=== PATIENT | male | born 1955 | race Caucasian/White ===

== ENCOUNTER 2023-10-25 07:06 | Day surgery (SDC) | payer MEDICARE ==
[2023-10-25] MEDS: LACTATED RINGERS 1,000 ML IV ONE (07:15)
[2023-10-25] MEDS: KETOROLAC 0.45% OPHTH DROPS ONE (07:20)
[2023-10-25] MEDS: PROPARACAINE 0.5% OPHTH DROPS 15 ML ONE (07:20)
[2023-10-25] MEDS: CYCLOPENTOLATE 1% OPHTH DROPS 2 ML ONE (07:20)
[2023-10-25 07:29] VITALS: O2SAT 97
[2023-10-25] MEDS: PHENYLEPHRINE 2.5% OPHTH 2 ML DROPS ONE (07:38)
--- NOTE | 2023-10-25 08:04 | ANESTHESIA ---
Pre-Anesthesia VS, & Labs - Diagnosis NUCLEAR CATARACT - Procedure CATARACT EXTRACTION WITH PROBABLE IOL IMPLANT Vital Signs: Temp Pulse Resp BP Pulse Ox O2 Flow Rate 36.5 C 80 11 L 132/91 H 97 10/25/23 07:15 10/25/23 07:15 10/25/23 07:15 10/25/23 07:15 10/25/23 07:15 Height: 6 ft 2 in Weight (kg): 123.2 kg Body Mass Index: 34.8 BMI Classification: Obese - NPO >8 hours Home Medications and Allergies Home Medications: Ambulatory Orders Inclisiran Sodium [Leqvio] See Rx Instructions .ROUTE .COMPLEX 10/24/23 Losartan [Cozaar] 50 mg PO DAILY 10/24/23 Inclisiran Sodium [Leqvio] See Rx Instructions .ROUTE .COMPLEX 10/24/23 Losartan [Cozaar] 50 mg PO DAILY 10/24/23 Allergies/Adverse Reactions: Allergies Allergy/AdvReac Type Severity Reaction Status Date / Time No Known Drug Allergies Allergy Verified 10/24/23 11:20 Anes History & Medical History - Anesthetic History Anesthesia Complications: reports: No previous complications Family history of Anesthesia Complications: Denies Family history of Malignant Hyperthermia: Denies - Medical History Cardiovascular: reports: Hypertension, High cholesterol, Coronary artery disease, [place] Pulmonary: reports: None Gastrointestinal: reports: None Urinary: reports: Other Neuro: reports: None Musculoskeletal: reports: None Endocrine/Autoimmune: reports: None Blood Disorders: reports: None Skin: reports: None Smoking Status: Current every day smoker (QUIT TOBACCO PRODUCTS 12 YEARS AGO; CURRENT VAPE THC DAILY) Psychosocial: reports: Cannabis (VAPES THC) History of Cancer?: No - Surgical History General: reports: Colonoscopy Cardiothoracic: reports: Coronary stent, Cardiac catheterization, Angioplasty Urologic: reports: Prostatic surgery Results - EKG Results EKG Comparison: Reviewed EKG, Normal EKG Exam General: Alert, Oriented x3, Cooperative, No acute distress Dental: WNL Mouth Openin Fingerbreadth Neck Mobility: Normal Mallampati classification: II Thyromental Distance: 4-6 cm Mental/Cognitive Status: Alert/Oriented X3, Normal for patient Cognitive Status: Within normal limits Plan Anesthesia Type: MAC Consent for Procedure(s) Verified and Reviewed: Yes Code Status: Attempt Resuscitation ASA classification: 3-Severe systemic disease Is this case an emergency?: No
[2023-10-25] MEDS ORDERED: MIDAZOLAM 2 MG/2 ML VIAL ONE ×2 (08:20→08:58)
[2023-10-25] MEDS ORDERED: fentaNYL 100 MCG/2 ML VIAL ONE (08:21)
[2023-10-25] MEDS ORDERED: BRIMONIDINE 0.2% OPHTH DROPS 5 ML ONE (08:22)
[2023-10-25] MEDS ORDERED: BSS/LIDOCAINE/EPINEPHRINE 1 ML VIAL ONE (08:22)
[2023-10-25] MEDS ORDERED: EPINEPHrine 1 MG/ML AMP ONE ×2 (08:22→08:36)
[2023-10-25] MEDS ORDERED: TRIAMCIN/MOXIFLOX OPHTHALMIC 0.6 ML VIAL IO ONE (08:22)
[2023-10-25] MEDS ORDERED: TIMOLOL 0.5% OPHTH DROPS ONE (08:22)
[2023-10-25] MEDS: PROPARACAINE 0.5% OPHTH DROPS 15 ML EACHEYE ONE (09:02)
[2023-10-25] MEDS: VANCOMYCIN OPHTH (TOPICAL) 10 MG/ML SYRINGE TOP ONE (09:02)
[2023-10-25] MEDS: TIMOLOL 0.5% OPHTH DROPS OPTH ONE (09:02)
[2023-10-25] MEDS: TRIAMCIN/MOXIFLOX OPHTHALMIC 0.6 ML VIAL IO ONE (09:02)
[2023-10-25] MEDS: BSS/LIDOCAINE/EPINEPHRINE 1 ML SYRINGE IO ONE (09:02)
[2023-10-25] MEDS: EPINEPHrine 1 MG/ML AMP IR ONE (09:02)
[2023-10-25] MEDS: BRIMONIDINE 0.2% OPHTH DROPS 5 ML OPTH ONE (09:02)
[2023-10-25] MEDS: LACTATED RINGERS 600 ML IV ONE (09:15)
--- NOTE | 2023-10-25 09:21 | OPERATIVE REPORT ---
Operative Report - Other Other Information/Narrative: Date of Surgery: 10/25/23 Preop Dx: Visually significant cataract left eye. This was the first cataract surgery. Postop Dx: Same Procedure: Phacoemulsification with posterior chamber intraocular lens implant left eye Surgeon: Dr. Roe Tapia Anesthesia: Monitored anesthesia care Complications: None Operative Indications: This is a 67-year-old M with progressive vision loss in the left eye due to 3-4+ nuclear sclerotic cataract. Best corrected visual acuity was 20/30 with glare to 20/70 vision in the left eye. Indications for surgery were: - Overall decrease in vision - Difficulty seeing words on a computer screen - Difficulty reading - Difficulty seeing words, closed captions, or game scores on TV - Difficulty seeing street signs - Difficulty driving in low light or at night - Difficulty driving at night because of headlights from other vehicles - Difficulty with glare or bright lights in any situation The patient was consented at length concerning the risks and benefits of cataract surgery after which the patient expressed a desire to proceed with surgery. Operative Procedure: The patient was taken into OR#3 and placed under monitored anesthesia care. A surgical time-out was conducted confirming correct patient, correct procedure, and correct surgical site. The patient was given topical anesthesia and then prepped and draped in the usual sterile fashion. The eye was entered at the 6 and 3 oclock positions. Intracameral Shugarcaine was injected into the anterior chamber followed by a dispersive viscoelastic. A continuous-tear curvilinear capsulorhexis was performed. The nucleus was hydrodissected and phacoemulsified. The cortex was evacuated using automated infusion and aspiration. A cohesive viscoelastic was injected into the capsular bag and a 20.5 diopter intraocular lens was inserted into the bag. Infusion and aspiration were used to evacuate the viscoelastic materials from the eye. The wounds were hydrated and the eye inflated to physiologic pressure using balanced salt solution. Approximately 0.25ml of a mixture of triamcinolone and moxifloxacin was injected trans-sclerally into the vitreous in the inferotemporal quadrant using a 30 gauge cannula. An additional 0.25ml of a mixture of triamcinolone and moxifloxacin was injected subconjunctivally in the superior quadrant for infection and inflammation prophylaxis. Wound integrity was checked with Weck-Nataly sponges. The patient was taken from the operating room in good condition and given post-op instructions.
[2023-10-25 09:22] VITALS: BP 134/81
--- NOTE | 2023-10-25 11:26 | ANESTHESIA POST OP EVALUATION ---
Anesthesia Post Eval - Post Anesthesia Eval Vitals: Last Vital Signs Temp 36.3 C L 10/25/23 09:14 Pulse 68 10/25/23 09:14 Resp 12 10/25/23 09:14 BP 134/81 H 10/25/23 09:14 Pulse Ox 97 10/25/23 09:14 O2 Flow Rate CV Function Including HR & BP: Stable Pain Control: Satisfactory Nausea & Vomiting: Negative Mental Status: Baseline Respiratory Status: Airway Patent Hydration Status: Satisfactory Anesthesia Complications: None
== END 2023-10-25 07:07 | disposition home or self-care (01) ==
LOC: SDS 07:06
PROVIDERS: ATTEND Ophthalmology
DX: H25.12 Age-related nuclear cataract, left eye (principal); E66.9 Obesity, unspecified; Z68.34 Body mass index [BMI] 34.0-34.9, adult; I25.2 Old myocardial infarction; Z95.5 Presence of coronary angioplasty implant and graft; I10 Essential (primary) hypertension; I25.10 Atherosclerotic heart disease of native coronary artery without angina pectoris
CPT/HCPCS: 66984; A9270; J3490; J7120

== ENCOUNTER 2023-12-20 08:41 | Day surgery (SDC) | payer MEDICARE ==
[~2023-12-20 08:41] MED LIST: CYCLOPENTOLATE 1% OPHTH DROPS 2 ML ONE; KETOROLAC TROMETHAMINE 0.5% OPHTH DROPS 5 ML ONE; PHENYLEPHRINE 2.5% OPHTH 2 ML DROPS ONE; PROPARACAINE 0.5% OPHTH DROPS 15 ML ONE
[2023-12-20] MEDS: CYCLOPENTOLATE 1% OPHTH DROPS 2 ML RIGHTEYE ONE (09:06)
[2023-12-20] MEDS: PROPARACAINE 0.5% OPHTH DROPS 15 ML RIGHTEYE ONE ×2 (09:06→11:03)
[2023-12-20] MEDS: PHENYLEPHRINE 2.5% OPHTH 2 ML DROPS RIGHTEYE ONE (09:06)
[2023-12-20] MEDS: KETOROLAC TROMETHAMINE 0.5% OPHTH DROPS 5 ML RIGHTEYE ONE (09:06)
[2023-12-20] MEDS: LACTATED RINGERS 1,000 ML IV ONE ×2 (09:39→11:19)
--- NOTE | 2023-12-20 10:20 | ANESTHESIA ---
Pre-Anesthesia VS, & Labs - Diagnosis R cataract - Procedure R PhacoIOL Vital Signs: Temp Pulse Resp BP Pulse Ox O2 Flow Rate 36.6 C 74 18 142/99 H 96 12/20/23 08:55 12/20/23 08:55 12/20/23 08:55 12/20/23 08:55 12/20/23 08:55 Height: 6 ft Weight (kg): 122.5 kg Body Mass Index: 36.6 BMI Classification: Obese - NPO >8 hours Home Medications and Allergies Home Medications: Ambulatory Orders Cetirizine [ZyrTEC] 10 mg PO DAILY 12/19/23 Inclisiran Sodium [Leqvio] See Rx Instructions .ROUTE .COMPLEX 10/24/23 Losartan [Cozaar] 50 mg PO DAILY 10/24/23 Cetirizine [ZyrTEC] 10 mg PO DAILY 12/19/23 Allergies/Adverse Reactions: Allergies Allergy/AdvReac Type Severity Reaction Status Date / Time No Known Drug Allergies Allergy Verified 12/19/23 13:23 Anes History & Medical History - Anesthetic History Anesthesia Complications: reports: No previous complications Family history of Anesthesia Complications: Denies Family history of Malignant Hyperthermia: Denies - Medical History Cardiovascular: reports: Hypertension, High cholesterol, Coronary artery disease, [place] Pulmonary: reports: None Gastrointestinal: reports: None Urinary: reports: Other Neuro: reports: None Musculoskeletal: reports: None Endocrine/Autoimmune: reports: None Blood Disorders: reports: None Skin: reports: None Smoking Status: Current every day smoker (QUIT TOBACCO PRODUCTS 12 YEARS AGO; CURRENT VAPE THC DAILY) Psychosocial: reports: No issues indicated - Surgical History General: reports: Colonoscopy Cardiothoracic: reports: Coronary stent, Cardiac catheterization, Angioplasty Urologic: reports: Prostatic surgery Exam General: Alert, Oriented x3, Cooperative Dental: WNL Mouth Openin Fingerbreadth Mallampati classification: III Thyromental Distance: 4-6 cm Respiratory: Lungs clear Cardiovascular: Regular rate Plan Anesthesia Type: MAC Consent for Procedure(s) Verified and Reviewed: Yes Code Status: Attempt Resuscitation ASA classification: 2-Mild systemic disease Is this case an emergency?: No
[2023-12-20] MEDS ORDERED: EPINEPHrine 1 MG/ML AMP ONE (10:35)
[2023-12-20] MEDS ORDERED: TIMOLOL 0.5% OPHTH DROPS ONE (10:35)
[2023-12-20] MEDS ORDERED: BSS/LIDOCAINE/EPINEPHRINE 1 ML VIAL ONE (10:35)
[2023-12-20] MEDS ORDERED: BRIMONIDINE 0.2% OPHTH DROPS 5 ML ONE (10:35)
[2023-12-20] MEDS ORDERED: TRIAMCIN/MOXIFLOX OPHTHALMIC 0.6 ML VIAL IO ONE (10:35)
[2023-12-20] MEDS ORDERED: fentaNYL 100 MCG/2 ML VIAL ONE (10:43)
[2023-12-20] MEDS ORDERED: MIDAZOLAM 2 MG/2 ML VIAL ONE (10:43)
[2023-12-20] MEDS: EPINEPHrine 1 MG/ML AMP IR ONE (11:02)
[2023-12-20] MEDS: TIMOLOL 0.5% OPHTH DROPS OPTH ONE (11:02)
[2023-12-20] MEDS: BRIMONIDINE 0.2% OPHTH DROPS 5 ML OPTH ONE (11:02)
[2023-12-20] MEDS: TRIAMCIN/MOXIFLOX OPHTHALMIC 0.6 ML VIAL IO ONE (11:03)
[2023-12-20] MEDS: BSS/LIDOCAINE/EPINEPHRINE 1 ML SYRINGE IO ONE (11:03)
[2023-12-20] MEDS: VANCOMYCIN OPHTH (TOPICAL) 10 MG/ML SYRINGE TOP ONE (11:03)
--- NOTE | 2023-12-20 11:26 | OPERATIVE REPORT ---
Operative Report - Other Other Information/Narrative: Date of Surgery: 12/20/23 Preop Dx: Visually significant cataract right eye. Cataract surgery was performed in the left eye on [id number]. Postop Dx: Same Procedure: Phacoemulsification with posterior chamber intraocular lens implant right eye Surgeon: Dr. Roe Tapia Anesthesia: Monitored anesthesia care Complications: None Operative Indications: This is a 68-year-old M with progressive vision loss in the right eye due to 3-4+ nuclear sclerotic cataract. Best corrected visual acuity was 20/25 with glare to 20/50 vision in the right eye. Indications for surgery were: - Overall decrease in vision - Difficulty seeing words on a computer screen - Difficulty reading - Difficulty seeing words, closed captions, or game scores on TV - Difficulty seeing street signs - Difficulty driving in low light or at night - Difficulty driving at night because of headlights from other vehicles - Difficulty with glare or bright lights in any situation - Difficulty tracking a golf ball The patient was consented at length concerning the risks and benefits of cataract surgery after which the patient expressed a desire to proceed with surgery. Operative Procedure: The patient was taken into OR#3 and placed under monitored anesthesia care. A surgical time-out was conducted confirming correct patient, correct procedure, and correct surgical site. The patient was given topical anesthesia and then prepped and draped in the usual sterile fashion. The eye was entered at the 6 and 3 oclock positions. Intracameral Shugarcaine was injected into the anterior chamber followed by a dispersive viscoelastic. A continuous-tear curvilinear capsulorhexis was performed. The nucleus was hydrodissected and phacoemulsified. The cortex was evacuated using automated infusion and aspiration. A cohesive viscoelastic was injected into the capsular bag and a 21.0 diopter intraocular lens was inserted into the bag. Infusion and aspiration were used to evacuate the viscoelastic materials from the eye. The wounds were hydrated and the eye inflated to physiologic pressure using balanced salt solution. Approximately 0.25ml of a mixture of triamcinolone and moxifloxacin was injected trans-sclerally into the vitreous in the inferotemporal quadrant using a 30 gauge cannula. An additional 0.25ml of a mixture of triamcinolone and moxifloxacin was injected subconjunctivally in the superior quadrant for infection and inflammation prophylaxis. Wound integrity was checked with Weck-Nataly sponges. The patient was taken from the operating room in good condition and given post-op instructions.
[2023-12-20 11:52] VITALS: BP 130/85; O2SAT 96
--- NOTE | 2023-12-20 13:12 | ANESTHESIA POST OP EVALUATION ---
Anesthesia Post Eval - Post Anesthesia Eval Vitals: Last Vital Signs Temp 36.2 C L 12/20/23 11:30 Pulse 72 12/20/23 11:30 Resp 14 12/20/23 11:30 BP 130/85 H 12/20/23 11:30 Pulse Ox 96 12/20/23 11:30 O2 Flow Rate CV Function Including HR & BP: Stable Pain Control: Satisfactory Nausea & Vomiting: Negative Mental Status: Baseline Respiratory Status: Airway Patent Hydration Status: Satisfactory Anesthesia Complications: None
== END 2023-12-20 08:42 | disposition home or self-care (01) ==
LOC: SDS 08:41
PROVIDERS: ATTEND Ophthalmology
DX: H25.11 Age-related nuclear cataract, right eye (principal); I10 Essential (primary) hypertension; I25.10 Atherosclerotic heart disease of native coronary artery without angina pectoris; I25.2 Old myocardial infarction; E66.9 Obesity, unspecified; Z68.36 Body mass index [BMI] 36.0-36.9, adult; Z87.891 Personal history of nicotine dependence; Z98.42 Cataract extraction status, left eye
CPT/HCPCS: 66984; A9270; J3490; J7120